=== PATIENT | female | born 1965 | race Caucasian/White ===

== ENCOUNTER 2016-12-06 15:05 | Emergency (ER) | payer BC, OTHER ==
[~2016-12-06] VITALS: Ht 154.9 cm; Wt 71.2 kg
[2016-12-06 15:16] VITALS: BP 128/87
[2016-12-06] MEDS ORDERED: NAPROXEN 500 MG TABLET PO SCH (15:30)
[2016-12-06] MEDS ORDERED: NAPROXEN 250 MG TABLET ONE (15:39)
== END 2016-12-06 16:20 | disposition home or self-care (01) ==
LOC: ER 15:07
DX: M70.52 Other bursitis of knee, left knee (principal); M70.51 Other bursitis of knee, right knee; G89.29 Other chronic pain; M25.562 Pain in left knee; M25.561 Pain in right knee; I10 Essential (primary) hypertension; F41.9 Anxiety disorder, unspecified
CPT/HCPCS: 73560 ×2; 99284; A4606; Z7610